=== PATIENT | male | born 1970 | race Caucasian/White ===

== ENCOUNTER 2022-08-09 05:50 | Day surgery (SDC) | payer BC ==
[2022-08-09] MEDS ORDERED: Midazolam 1 MG/ML 2 ML SDV IV ONE ×6 (05:51→07:02)
[2022-08-09] MEDS ORDERED: fentaNYL 100 MCG/2 ML SDV IV ONE ×5 (05:51→07:06)
[2022-08-09] MEDS ORDERED: fentaNYL 100 MCG/2 ML SDV ONE (06:21)
[2022-08-09] MEDS ORDERED: Midazolam 1 MG/ML 2 ML SDV ONE (06:21)
[2022-08-09] MEDS ORDERED: Sodium Chloride 0.9% 10 ML Syringe FLUSH PRN (07:05)
[2022-08-09] MEDS ORDERED: Dextrose 5%-0.45% NaCl 1,000 ML IV SCH (07:45)
[2022-08-09] MEDS ORDERED: Sodium Chloride 0.9% 10 ML Syringe FLUSH SCH (09:00)
== END 2022-08-09 08:57 | disposition home or self-care (01) ==
LOC: DL.ENDO 05:50
PROVIDERS: ATTEND Internal Medicine Gastroenterology
DX: Z12.11 Encounter for screening for malignant neoplasm of colon (principal); F17.210 Nicotine dependence, cigarettes, uncomplicated; E11.9 Type 2 diabetes mellitus without complications; E78.5 Hyperlipidemia, unspecified; I73.9 Peripheral vascular disease, unspecified; Z80.0 Family history of malignant neoplasm of digestive organs; Z79.82 Long term (current) use of aspirin; Z79.84 Long term (current) use of oral hypoglycemic drugs; Z79.899 Other long term (current) drug therapy
CPT/HCPCS: 45378; J2250; J3010; J7042